=== PATIENT | female | born 1945 | race Hispanic/Latino ===

== ENCOUNTER 2025-05-05 06:53 | Day surgery (SDC) | payer OTHER ==
[2025-05-01 13:00] LABS: IMMATURE GRANULOCYTE ABSOLUTE 0.02 K/uL (0-1); NUCLEATED RED BLOOD CELLS 0.0 % (0.0-0.19); PLATELET COUNT (AUTO) 232 K/uL (130-400); RED BLOOD CELL COUNT(AUTO) 4.01 MIL/uL (4.00-5.50); RED CELL DISTRIBUTION WIDTH 13.1 % (11.0-15.5); WHITE BLOOD COUNT (AUTO) 6.5 K/uL (4.8-10.8)
[2025-05-01 13:05] VITALS: BP 120/53; PULSE 85; RESP 18; TEMP 97.7
[2025-05-01 13:09] LABS: CREATININE 0.8 mg/dL (0.5-1.0); GLOMERULAR FILTR. RATE CALC 75.0 mL/min (>90); GLUCOSE,RANDOM 82.0 mg/dL (70-105); SODIUM SERUM 136.0 mmol/L (136-145); UREA NITROGEN, BLOOD 17.0 mg/dL (7-18)
[2025-05-01 13:13] LABS: INR 0.99 (0.85-1.15)
--- NOTE | 2025-05-02 03:03 | EKG ---
[facility] Test Date: 2025-05-01 Test Time: 12:45:05 Pat Name: MARCOS VALDEZ [facility] Room: Gender: F [employer]: [id number] : [id number] Requested By: Grant KAT Order Number: [id number] Reading MD: Derick Hassan Measurements Intervals [place] Rate: 62 P: 21 NH: 178 QRS: 23 QRSD: 101 T: 38 QT: 390 QTc: 397 Interpretive Statements Sinus rhythm Low voltage, precordial leads No previous ECG available for comparison Electronically Signed On 05-02-2025 13:40:51 CDT by Derick Hassan Please click the below link to view image of tracing.
[~2025-05-05] VITALS: Ht 154.9 cm; Wt 58.3 kg
[2025-05-05] VITALS (10 sets, daily range): BP systolic 103–131; BP diastolic 49–72; PULSE 60–91; RESP 11–18; TEMP 97–97.9
[~2025-05-05 06:53] MED LIST: AMLO-257 PO; DOCU100C33 PO; DOXY50CA2 PO; FLUO20TA29 PO; IBUP-2784 PO; LEVO75TA10 PO; LINA145C PO; LORA10TA7 PO; METF-444 PO; MONT-39 PO; OMEP20CA12 PO; ONDA-243 PO; RAMI5CAP72 PO; ROSU40TA88 PO; VIT1CAPS46 PO
[2025-05-05] MEDS: 0.9%NACL 1000ML 1,000 ML IV SCH (07:55)
[2025-05-05] MEDS ORDERED: LIDOCAINE HCL 1% MDV 50ML VIAL ONE (09:40)
[2025-05-05] MEDS ORDERED: SODIUM BICARB 50MEQ 50ML VIAL 50 ML ONE (09:40)
[2025-05-05] MEDS ORDERED: MIDAZOLAM HCL 1 MG/ML 2ML VIAL ONE ×3 (10:08→10:44)
[2025-05-05] MEDS ORDERED: ATROPINE 1MG SYG IVP ONE (10:52)
[2025-05-05] MEDS ORDERED: CEPH250C2 PO (12:31)
[2025-05-05] MEDS ORDERED: ACET-2079 PO (12:32)
--- NOTE | 2025-05-05 14:39 | NUR ---
Left Chest wall incision site without sign of bleeding bruising or hematoma. Educated on discharge protocol and expectations with PPM site dressing clean dry and intact. VS wnl. Denies c/o pain or issue at this time. Provided apple juice and offered Lunch. Tray at bedside. Daughter in Lobby on work call. SR's up x 2. Call light in reACH. Reported off in full to oncoming Nurse,zaynab KRAFT.
== END 2025-05-05 16:46 | disposition home or self-care (01) ==
LOC: DAH 06:53
PROVIDERS: ATTEND Internal Medicine Cardiovascular Disease
DX: Z95.0 Presence of cardiac pacemaker (principal); I10 Essential (primary) hypertension; E11.9 Type 2 diabetes mellitus without complications; E03.9 Hypothyroidism, unspecified; E78.5 Hyperlipidemia, unspecified; F41.9 Anxiety disorder, unspecified; Z86.2 Personal history of diseases of the blood and blood-forming organs and certain disorders involving the immune mechanism; Z79.01 Long term (current) use of anticoagulants; Z90.49 Acquired absence of other specified parts of digestive tract; Z82.49 Family history of ischemic heart disease and other diseases of the circulatory system; Z79.899 Other long term (current) drug therapy; Z98.890 Other specified postprocedural states
CPT/HCPCS: 80048; 85025; 85610; 85730; 36415; 93005; 17999; 99156; 99157 ×5; 82948 ×2; A4223 ×3; J3010; J0690 ×2; J0665; J3490 ×2; J2250 ×3; A4215; A4222; A4221; A4663; A4216; A4606; 33222; J0461